=== PATIENT | female | born 1945 | race Asian ===

== ENCOUNTER 2018-02-26 12:38 | Day surgery (SDC) | payer MEDICARE, OTHER ==
[2018-02-26] MEDS ORDERED: PROPOFOL 20 ML (14:43)
[2018-02-26] MEDS ORDERED: FENTAnyl 50 MCG/ML VIAL (14:44)
== END 2018-02-26 19:26 | disposition home or self-care (01) ==
LOC: GIL 12:38
DX: K92.1 Melena (principal); K29.50 Unspecified chronic gastritis without bleeding; D17.5 Benign lipomatous neoplasm of intra-abdominal organs; K64.8 Other hemorrhoids; E78.5 Hyperlipidemia, unspecified; I10 Essential (primary) hypertension
CPT/HCPCS: 43239; 88305; 88312